=== PATIENT | female | born 1995 | race African-American/Black ===

== ENCOUNTER 2018-03-02 02:01 | Inpatient (IN) | payer SELFPAY ==
[~2018-03-02] VITALS: Ht 165.1 cm; Wt 43.2 kg
[2018-03-02 02:15] VITALS: BP 147/75; PULSE 96; RESP 16; TEMP 98.9; O2SAT 100
[2018-03-02] MEDS ORDERED: HALOPERIDOL LACTATE 5 MG/ML AMP IM ONE (04:15)
[2018-03-02 04:20] LABS: AUTOMATED NEUTROPHIL # 6.4 TH/MM3 (1.8-7.7); BASOPHIL # 0.1 TH/MM3 (0-0.2); BASOPHIL % 0.7 % (0.0-2.0); EOSINOPHIL % 0.2 % (0.0-4.0); HEMATOCRIT 38.2 % (35.0-46.0); HEMOGLOBIN 12.7 GM/DL (11.6-15.3); LYMPH % 21.9 % (9.0-44.0); LYMPHOCYTE # 2.1 TH/MM3 (1.0-4.8); MEAN CELL VOLUME 88.3 FL (80.0-100.0); MEAN CORPUSCULAR HEMOGLOBIN 29.5 PG (27.0-34.0); MEAN CORPUSCULAR HGB CONC 33.4 % (32.0-36.0); MEAN PLATELET VOLUME 9.2 FL (7.0-11.0); MONO % 11.6 % (0.0-8.0); MONOCYTE # 1.1 TH/MM3 (0-0.9); NEUT % 65.6 % (16.0-70.0); PLATELET COUNT 277 TH/MM3 (150-450); RED BLOOD COUNT 4.32 MIL/MM3 (4.00-5.30); RED CELL DISTRIBUTION WIDTH 14.1 % (11.6-17.2); WHITE BLOOD COUNT 9.7 TH/MM3 (4.0-11.0)
[2018-03-02 04:40] LABS: ALBUMIN 4.8 GM/DL (3.4-5.0); ALT (GPT) 18 U/L (10-53); AST (GOT) 15 U/L (15-37); BICARBONATE 24.5 MEQ/L (21.0-32.0); BLOOD UREA NITROGEN 15 MG/DL (7-18); CALCIUM 9.5 MG/DL (8.5-10.1); CHLORIDE 102 MEQ/L (98-107); CREATININE 0.81 MG/DL (0.50-1.00); GLOMERULAR FILTRATION RATE 108 ML/MIN (>89); GLUCOSE,RANDOM 86 MG/DL (74-106); SODIUM (NA) 136 MEQ/L (136-145)
[2018-03-02 04:42] LABS: ACETAMINOPHEN LESS THAN 2.0 MCG/ML (10.0-30.0)
[2018-03-02 04:50] LABS: ALKALINE PHOSPHATASE 66 U/L (45-117); TOTAL BILIRUBIN ADULT 0.9 MG/DL (0.2-1.0); TOTAL PROTEIN 8.9 GM/DL (6.4-8.2)
--- NOTE | 2018-03-02 06:09 | PD ---
HPI Chief Complaint: Psychiatric Symptoms Time Seen by Provider: 03:42 Travel History International Travel<30 days: No Contact w/Intl Traveler<30days: No Traveled to known affect area: No History of Present Illness HPI Patient is a 22-year-old presenting to the emergency department for psychiatric evaluation. Patient presents with her boss, patient reports that she hears voices, voices are getting louder. Patient stated that she hears people at her door and her window that are not there when she checks. She reports that the voices are in her head all the time and the only way she does not hear them as much as when she turns on music. Patient's boss states that she [place]. Patient denies any illicit drug use, she denies any psychiatric history. She is aware that she is hearing these voices that other people likely do not hear. She states that she is getting better as talking to people who are far away. Symptom onset is unknown, unknown if there any exacerbating factors. PFSH Past Medical History Medical History: Denies Significant Hx Tetanus Vaccination: Unknown Influenza Vaccination: No ?: Not LMP: 01/31/18 Past Surgical History Surgical History: No Previous Surgery Social History Alcohol Use: Yes (Occaisonally) Tobacco Use: No Substance Use: No Allergies-Medications (Allergen,Severity, Reaction): Coded Allergies: No Known Drug Allergies (Verified Allergy, Unknown, 03/02/18) Review of Systems Except as stated in HPI: all other systems reviewed are Neg Psychiatric: Positive: Disorder of Thought, Mood Disorder Physical Exam Narrative GENERAL: Thin, well-nourished, well-developed -[place] female. Presenting in no acute distress. SKIN: Warm and dry. HEAD: Atraumatic. Normocephalic. EYES: Pupils equal and round. No scleral icterus. No injection or drainage. ENT: No nasal bleeding or discharge. Mucous membranes pink and moist. NECK: Trachea midline. No JVD. CARDIOVASCULAR: Regular rate and rhythm. RESPIRATORY: No accessory muscle use. Clear to auscultation. Breath sounds equal bilaterally. GASTROINTESTINAL: Abdomen soft, non-tender, nondistended. Hepatic and splenic margins not palpable. MUSCULOSKELETAL: Extremities without clubbing, cyanosis, or edema. No obvious deformities. NEUROLOGICAL: Awake and alert. No obvious cranial nerve deficits. Motor grossly within normal limits. Five out of 5 muscle strength in the arms and legs. Normal speech. PSYCHIATRIC: Paranoid and delusional, patient appears to be responding to internal stimuli. Data Data Last Documented VS Vital Signs Date Time Temp Pulse Resp B/P (MAP) Pulse Ox O2 Delivery O2 Flow Rate FiO2 03/02/18 02:15 98.9 96 16 147/75 (99) 100 Orders Orders Complete Blood Count With Diff (03/02/18 03:43) Comprehensive Metabolic Panel (03/02/18 03:43) Thyroid Stimulating Hormone (03/02/18 03:43) Urinalysis - C+S If Indicated (03/02/18 03:43) Ed Urine Pregnancytest Poc (03/02/18 03:43) Psych Screen (03/02/18 03:43) Drug Screen, Random Urine (03/02/18 03:43) Alcohol (Ethanol) (03/02/18 03:43) Salicylates (Aspirin) (03/02/18 03:43) Tylenol (Acetaminophen) (03/02/18 03:43) Haloperidol Inj (Haldol Inj) (03/02/18 04:15) Labs Laboratory Tests Test 03/02/18 03:40 White Blood Count 9.7 TH/MM3 Red Blood Count 4.32 MIL/MM3 Hemoglobin 12.7 GM/DL Hematocrit 38.2 % Mean Corpuscular Volume 88.3 FL Mean Corpuscular Hemoglobin 29.5 PG Mean Corpuscular Hemoglobin Concent 33.4 % Red Cell Distribution Width 14.1 % Platelet Count 277 TH/MM3 Mean Platelet Volume 9.2 FL Neutrophils (%) (Auto) 65.6 % Lymphocytes (%) (Auto) 21.9 % Monocytes (%) (Auto) 11.6 % Eosinophils (%) (Auto) 0.2 % Basophils (%) (Auto) 0.7 % Neutrophils # (Auto) 6.4 TH/MM3 Lymphocytes # (Auto) 2.1 TH/MM3 Monocytes # (Auto) 1.1 TH/MM3 Eosinophils # (Auto) 0.0 TH/MM3 Basophils # (Auto) 0.1 TH/MM3 CBC Comment DIFF FINAL Differential Comment Blood Urea Nitrogen 15 MG/DL Creatinine 0.81 MG/DL Random Glucose 86 MG/DL Total Protein 8.9 GM/DL Albumin 4.8 GM/DL Calcium Level 9.5 MG/DL Alkaline Phosphatase 66 U/L Aspartate Amino Transf (AST/SGOT) 15 U/L Alanine Aminotransferase (ALT/SGPT) 18 U/L Total Bilirubin 0.9 MG/DL Sodium Level 136 MEQ/L Potassium Level 3.5 MEQ/L Chloride Level 102 MEQ/L Carbon Dioxide Level 24.5 MEQ/L Anion Gap 10 MEQ/L Estimat Glomerular Filtration Rate 108 ML/MIN Thyroid Stimulating Hormone 3rd Gen 3.760 uIU/ML Salicylates Level 2.8 MG/DL Acetaminophen Level LESS THAN 2.0 MCG/ML Ethyl Alcohol Level LESS THAN 3 MG/DL MDM Medical Decision Making Medical Screen Exam Complete: Yes Emergency Medical Condition: Yes Interpretation(s) Vital Signs Date Time Temp Pulse Resp B/P (MAP) Pulse Ox O2 Delivery O2 Flow Rate FiO2 03/02/18 02:15 98.9 96 16 147/75 (99) 100 Differential Diagnosis Mood disorder versus substance abuse versus psychosis versus schizophrenia versus metabolic abnormality versus other Narrative Course Patient is a well-appearing 22-year-old female presenting to the emergency department for psychiatric evaluation initially voluntarily. Patient appears paranoid, delusional, she does not seem capable of making sound decisions as evidenced by her being upon naked this evening. Patient was placed under Becker act for her own safety. Mental health screening discussed with the patient. Psychiatric screen ordered. Labs reviewed, no acute findings identified. Urine drug screen is pending. Patient is medically cleared for psychiatric evaluation. Diagnosis Primary Impression: Medical clearance for psychiatric admission Condition: Stable Megan Dean March 02, 2018 06:09
[2018-03-02 06:25] VITALS: BP 119/70; PULSE 90; RESP 15; TEMP 98.1; O2SAT 100
--- NOTE | 2018-03-02 07:05 | PD ---
Data Data Last Documented VS Vital Signs Date Time Temp Pulse Resp B/P (MAP) Pulse Ox O2 Delivery O2 Flow Rate FiO2 03/02/18 06:25 98.1 90 15 119/70 (86) 100 Room Air Orders Orders Complete Blood Count With Diff (03/02/18 03:43) Comprehensive Metabolic Panel (03/02/18 03:43) Thyroid Stimulating Hormone (03/02/18 03:43) Urinalysis - C+S If Indicated (03/02/18 03:43) Ed Urine Pregnancytest Poc (03/02/18 03:43) Psych Screen (03/02/18 03:43) Drug Screen, Random Urine (03/02/18 03:43) Alcohol (Ethanol) (03/02/18 03:43) Salicylates (Aspirin) (03/02/18 03:43) Tylenol (Acetaminophen) (03/02/18 03:43) Haloperidol Inj (Haldol Inj) (03/02/18 04:15) Diet Regular Basic (03/02/18 Breakfast) Labs Laboratory Tests Test 03/02/18 03:40 White Blood Count 9.7 TH/MM3 Red Blood Count 4.32 MIL/MM3 Hemoglobin 12.7 GM/DL Hematocrit 38.2 % Mean Corpuscular Volume 88.3 FL Mean Corpuscular Hemoglobin 29.5 PG Mean Corpuscular Hemoglobin Concent 33.4 % Red Cell Distribution Width 14.1 % Platelet Count 277 TH/MM3 Mean Platelet Volume 9.2 FL Neutrophils (%) (Auto) 65.6 % Lymphocytes (%) (Auto) 21.9 % Monocytes (%) (Auto) 11.6 % Eosinophils (%) (Auto) 0.2 % Basophils (%) (Auto) 0.7 % Neutrophils # (Auto) 6.4 TH/MM3 Lymphocytes # (Auto) 2.1 TH/MM3 Monocytes # (Auto) 1.1 TH/MM3 Eosinophils # (Auto) 0.0 TH/MM3 Basophils # (Auto) 0.1 TH/MM3 CBC Comment DIFF FINAL Differential Comment Blood Urea Nitrogen 15 MG/DL Creatinine 0.81 MG/DL Random Glucose 86 MG/DL Total Protein 8.9 GM/DL Albumin 4.8 GM/DL Calcium Level 9.5 MG/DL Alkaline Phosphatase 66 U/L Aspartate Amino Transf (AST/SGOT) 15 U/L Alanine Aminotransferase (ALT/SGPT) 18 U/L Total Bilirubin 0.9 MG/DL Sodium Level 136 MEQ/L Potassium Level 3.5 MEQ/L Chloride Level 102 MEQ/L Carbon Dioxide Level 24.5 MEQ/L Anion Gap 10 MEQ/L Estimat Glomerular Filtration Rate 108 ML/MIN Thyroid Stimulating Hormone 3rd Gen 3.760 uIU/ML Salicylates Level 2.8 MG/DL Acetaminophen Level LESS THAN 2.0 MCG/ML Ethyl Alcohol Level LESS THAN 3 MG/DL MDM Supervised Visit with RON: Yes Narrative Course The history, exam, and medical decision-making in the associated midlevel provider note were completed with my assistance. I reviewed and agree with the findings presented. I attest that I had a [id number] encounter with the patient on the same day, and personally performed and documented my assessment and findings in the medical record. *My assessment and Findings: This is a 22-year-old female who presents to the emergency department with paranoia, saying that she is hearing voices. She evidently was [place] with no clothes on. She appears psychotic on exam with some scientologist preoccupation. My concern is that she is demonstrating new onset schizophrenia. Labs are reassuring. Patient will be evaluated by psychiatry. Diagnosis Primary Impression: Medical clearance for psychiatric admission Scripts No Active Prescriptions or Reported Meds Condition: Stable Meliza Jaime MD March 02, 2018 07:05
[2018-03-02 07:56] VITALS: BP 90/51; PULSE 70; RESP 18; TEMP 98.9; O2SAT 100
[2018-03-02 08:40] LABS: BILIRUBIN, URINE NEG (NEG); BLOOD, URINE NEG (NEG); GLUCOSE,URINE NEG (NEG); KETONE, URINE 40 mg/dL (NEG); NITRITE,URINE NEG (NEG); PH, URINE 6.5 (5.0-8.5); URINE COLOR LIGHT-YELLOW (YELLW/STRAW); URINE LEUKOCYTE ESTERASE MOD (NEG)
[2018-03-02] MEDS ORDERED: ACETAMINOPHEN 325 MG TAB PO PRN (08:45)
[2018-03-02] MEDS ORDERED: ALUMINUM/MAGNESIUM/SIMETH 30 ML CUP PO PRN (08:45)
[2018-03-02] MEDS ORDERED: diphenhydrAMINE HCL 50 MG CAP PO PRN (08:45)
[2018-03-02] MEDS ORDERED: NICOTINE 21 MG/24 HR PATCH T-DERMAL PRN (08:45)
[2018-03-02] MEDS ORDERED: MAGNESIUM HYDROXIDE SUSP 30 ML CUP PO PRN (08:45)
[2018-03-02 08:46] LABS: BACTERIA, URINE MOD /hpf; MUCUS URINE MOD /lpf (OCC)
--- NOTE | 2018-03-02 09:13 | HHI.HP ---
Provisional Diagnosis Admission Date March 02, 2018 at 08:38 [place] I. 1. Brief psychotic disorder Rule out primary psychotic disorder Rule out mood disorder with psychotic features Rule-out substance induced psychotic disorder Rule out psychosis due to [facility] [place] II. Deferred Certification of Person's Competence To Provide Express and Informed Consent I have personally examined Elsa Hameed , a person being served at [facility] on, March 02, 2018 09:13. Express and informed consent means consent voluntarily given in writing, by a competent person, after sufficient explanation and disclosure of the subject matter involved to enable the person to make a knowing and willful decision without any element of force, fraud, deceit, duress, or other form of constraint or coercion. This person is 18 years of age or older, is not now known to be incompetent to consent to treatment with a guardian advocate, and does not have a health care surrogate or proxy currently making medical treatment decisions. I have found this person to be one of the following: [] Competent to provide express and informed consent, as defined above, for voluntary admission to this facility and is competent to provide express and informed consent for treatment. He/she has the consistent capacity to make well reasoned, willful, and knowing decisions concerning his or her medical or mental health treatment. The person fully and consistently understands the purpose of the admission for examination/placement and is fully capable of personally exercising all rights [place] [x] Incompetent to provide express and informed consent to voluntary admission, and this is incompetent to provide express and informed consent to treatment. The person must be transferred to involuntary status and a petition for a guardian advocate filed with the Circuit Court. [] Refusing to provide express and informed consent to voluntary admission but is competent to provide express and informed consent for treatment. The person must be discharged or transferred to involuntary status. Form shall be completed within 24 hours of a person's arrival at the receiving facility and filed in the clinical record of each person: 1. Admitted on a voluntary basis 2. Permitted to provide express and informed consent to his/her own treatment 3. Allowed to transfer from involuntary to voluntary status 4. Prior to permitting a person to consent to his or her own treatment after having been previously found incompetent to consent to treatment. History of Present Illness Capacity: Lacks Capacity Psych Chief Complaint: Psychosis HPI Ms. Hameed is a 22 year-old female with no known past psychiatric history who presented with her employer out of concern for psychotic symptoms. ED provider note reviewed. Reviewing the electronic medical record, it appears this is patient's first visit to [place]. Patient seen and examined. Chart reviewed. Case discussed with staff in the ED. On my examination today, the patient presents as quite disorganized with silly, inappropriate affect. She appears frankly internally stimulated and endorses auditory hallucinations, although she cannot describe these to me in any detail given her thought disorganization. She is able to deny command auditory hallucinations, albeit somewhat unreliably so. She denies any suicidal or homicidal ideation but seems unreliable to contract for safety. Paranoia is present. Feelings of thought manipulation or present. She does periodically change from having a silly affect to appearing quite fearful for unclear reasons. She is paranoid about providing contact information for collateral. Psychiatric interview is quite limited because of the patient's psychotic symptomatology. She verbalizes no acute physical complaints. Past psychiatric history: Patient is likely an unreliable historian. She denies a history of psychiatric diagnosis. She denies a history of inpatient or outpatient psychiatric treatment. She denies a history of suicide attempts. Family history: The patient denies a family history of serious mental illness or suicide. Chemical dependency history: When I ask about substance use, the patient says " I am loving soup plan." Urine toxicology is positive for cannabinoids. Social history: Patient is unable to provide due to psychiatric symptomatology. Given the patient's degree of psychiatric impairment I have obtained collateral information from her mother Anahi Matthews at [phone]/alternate . Ms. [place] out of state. She reports that the patient has no history of mental illness, nor is there any family history of mental illness problems. She does report that the patient has been struggling in a relationship recently, and mother is concerned that patient's partner may have been slipping her drugs. Mother is willing to serve as health care surrogate, and I have discussed the treatment plan with mother. Ms. Matthews wishes to hold off on any psychotropic medications at this time to see if the patient will clear on her own, although I have advocated for initiation of appropriate antipsychotic medications if patient's psychosis persists. Review of Systems ROS Limitations: Psychotic, Poor Historian Except as stated in HPI: all other systems reviewed are Neg Past Family Social History Coded Allergies: No Known Drug Allergies (Verified Allergy, Unknown, 03/02/18) Past Medical History No known past medical history No Active Prescriptions or Reported Meds Current Medications Medications (Trade) Dose Ordered Sig/[place]onte Route Start Time Stop Time Status Last Admin (Benadryl) 50 mg HS PRN PO 03/02/18 08:45 (Tylenol) 650 mg Q4H PRN PO 03/02/18 08:45 (Milk Of Magnesia Liq) 30 ml DAILY PRN PO 03/02/18 08:45 (Mag-Al Plus Susp Liq) 30 ml Q6H PRN PO 03/02/18 08:45 (Habitrol 21 Mg Patch.24 Hr) 1 patch DAILY PRN T-DERMAL 03/02/18 08:45 UNV (Macrobid) 100 mg BIDPC PO 03/02/18 18:00 UNV Patient's Strengths (min. 2) In a monitored setting. Verbally fluent. Physical Exam Physical exam completed by ED provider. On my examination today, the patient appears to be in no acute physical distress. No motor abnormalities noted. No signs of withdrawal noted. Labs and vitals reviewed: Vital Signs Vital Signs Date Time Temp Pulse Resp B/P (MAP) Pulse Ox O2 Delivery O2 Flow Rate FiO2 03/02/18 07:56 98.9 70 18 90/51 (64) 100 Room Air Lab Results Test 03/02/18 03:40 03/02/18 08:10 White Blood Count 9.7 TH/MM3 Red Blood Count 4.32 MIL/MM3 Hemoglobin 12.7 GM/DL Hematocrit 38.2 % Mean Corpuscular Volume 88.3 FL Mean Corpuscular Hemoglobin 29.5 PG Mean Corpuscular Hemoglobin Concent 33.4 % Red Cell Distribution Width 14.1 % Platelet Count 277 TH/MM3 Mean Platelet Volume 9.2 FL Neutrophils (%) (Auto) 65.6 % Lymphocytes (%) (Auto) 21.9 % Monocytes (%) (Auto) 11.6 % Eosinophils (%) (Auto) 0.2 % Basophils (%) (Auto) 0.7 % Neutrophils # (Auto) 6.4 TH/MM3 Lymphocytes # (Auto) 2.1 TH/MM3 Monocytes # (Auto) 1.1 TH/MM3 Eosinophils # (Auto) 0.0 TH/MM3 Basophils # (Auto) 0.1 TH/MM3 CBC Comment DIFF FINAL Differential Comment Blood Urea Nitrogen 15 MG/DL Creatinine 0.81 MG/DL Random Glucose 86 MG/DL Total Protein 8.9 GM/DL Albumin 4.8 GM/DL Calcium Level 9.5 MG/DL Alkaline Phosphatase 66 U/L Aspartate Amino Transf (AST/SGOT) 15 U/L Alanine Aminotransferase (ALT/SGPT) 18 U/L Total Bilirubin 0.9 MG/DL Sodium Level 136 MEQ/L Potassium Level 3.5 MEQ/L Chloride Level 102 MEQ/L Carbon Dioxide Level 24.5 MEQ/L Anion Gap 10 MEQ/L Estimat Glomerular Filtration Rate 108 ML/MIN Thyroid Stimulating Hormone 3rd Gen 3.760 uIU/ML Salicylates Level 2.8 MG/DL Acetaminophen Level LESS THAN 2.0 MCG/ML Ethyl Alcohol Level LESS THAN 3 MG/DL Urine Color LIGHT-YELLOW Urine Turbidity HAZY Urine pH 6.5 Urine Specific Velva 1.012 Urine Protein TRACE mg/dL Urine Glucose (UA) NEG mg/dL Urine Ketones 40 mg/dL Urine Occult Blood NEG Urine Nitrite NEG Urine Bilirubin NEG Urine Urobilinogen LESS THAN 2.0 MG/DL Urine Leukocyte Esterase MOD Urine WBC 9-14 /hpf Urine Squamous Epithelial Cells 6-8 /hpf Urine Bacteria MOD /hpf Urine Mucus MOD /lpf Microscopic Urinalysis Comment CULTURE INDICATED Urine Opiates Screen NEG Urine Barbiturates Screen NEG Urine Amphetamines Screen NEG Urine Benzodiazepines Screen NEG Urine Cocaine Screen NEG Urine Cannabinoids Screen POS Date/Time Source Procedure Growth Status 03/02/18 08:10 Urine Clean Catch Urine Culture Pending Received Mental Status Examination Appearance: Disheveled Consciousness: Alert Orientation: Person Motor Activity: Normal gait Speech: Unremarkable Language: Other (Rambling) Fund of Knowledge: Inadequate Attention and Concentration: Easily Distracted Memory: Impaired (Psychosis interferes) Mood: Anxious Affect: Other (Silly, inappropriate) Thought Process & Associations: Disorganized Thought Content: Delusional Hallucination Type: Other (Appears frankly internally stimulated) Delusion Type: Paranoid, Other (Thought manipulation) Suicidal Ideation: No Suicidal Plan: No Suicidal Intention: No Homicidal Ideation: No Homicidal Plan: No Homicidal Intention: No Insight: Poor Judgment: Poor Assessment & Plan Problem List: (1) Brief psychotic disorder ICD Codes: F23 - Brief psychotic disorder Assessment & Plan 22-year-old female with no known past psychiatric history who presents for psychiatric evaluation, placed under Becker act by ED provider. On my examination today, the patient appears to be floridly psychotic. Differential diagnosis for the psychosis is as detailed above. Patient's urine toxicology is positive for cannabinoids, perhaps suggesting a substance-induced component. Patient exhibits clear self-care deficit in her present state and requires psychiatric hospitalization for safety, observation and stabilization. Admit inpatient. Involuntary status. I have completed first opinion. Consult for second opinion. Request healthcare surrogate and guardian advocate. Per healthcare surrogate preference, hold off on psychotropic medications at this time. Continue Macrobid as ordered for UTI by ED provider and follow up urine cultures. First break psychosis workup including head imaging and laboratories. Check EKG for QTC in case antipsychotic as required. Vitals every shift. Counselor to see. Discharge Planning Pending psychiatric stabilization Request HC Surrog/Guard Advoc?: Yes Adolph Tirado MD March 02, 2018 09:13
--- NOTE | 2018-03-02 09:33 | RADRPT ---
EXAM DATE/TIME: 03/02/2018 09:15 [place] COMPARISON: No previous studies available for comparison. INDICATIONS : Altered mental status, hearing voices. RADIATION DOSE: 35.14 CTDIvol (mGy) MEDICAL HISTORY : None SURGICAL HISTORY : None. ENCOUNTER: Initial ACUITY: 1 day PAIN SCALE: 0/10 LOCATION: cranial TECHNIQUE: Multiple contiguous axial images were obtained of the head. Using automated exposure control and adj ustment of the mA and/or kV according to patient size, radiation dose was kept as low as reasonably a chievable to obtain optimal diagnostic quality images. DICOM format image data is available electro nically for review and comparison. FINDINGS: The head is mildly canted in the gantry creating some asymmetries. CEREBRUM: The ventricles are normal for age. No evidence of midline shift, mass lesion, hemorrhage or acute in farction. No extra-axial fluid collections are seen. POSTERIOR FOSSA: The cerebellum and brainstem are intact. The 4th ventricle is midline. The cerebellopontine angle i s unremarkable. EXTRACRANIAL: The visualized portion of the orbits is intact. SKULL: The calvaria is intact. No evidence of skull fracture. CONCLUSION: Negative noncontrast CT brain. Scott Romero MD on March 02, 2018 at 9:30 Board Certified Radiologist. This report was verified electronically.
[2018-03-02 10:01] VITALS: BP 94/52
[2018-03-02 11:26] VITALS: BP 109/59; PULSE 80; RESP 18; TEMP 98.3; O2SAT 98
[2018-03-02 16:42] LABS: FREE T4 1.35 NG/DL (0.76-1.46)
[2018-03-02 16:46] LABS: FOLATE GREATER THAN 20.0 NG/ML (3.1-17.5)
[2018-03-02] MEDS: NITROFURANTOIN MONOHYD MACROCR 100 MG CAP PO SCH (17:51)
[2018-03-03 05:53] VITALS: BP 127/57; PULSE 94; RESP 16; TEMP 98; O2SAT 99
[2018-03-03] MEDS: NITROFURANTOIN MONOHYD MACROCR 100 MG CAP PO SCH ×2 (09:40→18:14)
[2018-03-03 09:52] LABS: CHOLESTEROL 101 MG/DL (120-200); TRIGLYCERIDES 48 MG/DL (42-150)
[2018-03-03 09:53] LABS: CHOLESTEROL/ HDL RATIO 1.81 RATIO; HDL CHOLESTEROL 55.7 MG/DL (40.0-60.0); LDL CHOLESTEROL 36 MG/DL (0-99)
--- NOTE | 2018-03-03 11:01 | PD.PSY.CON ---
Provisional Diagnosis Admission Date March 02, 2018 at 08:38 [place] I. 1. Brief psychotic disorder Rule out primary psychotic disorder Rule out mood disorder with psychotic features Rule-out substance induced psychotic disorder Rule out psychosis due to [facility] [place] II. Deferred History of Present Illness Service Psychiatry Consult Requested By Psychiatry Reason for Consult 2nd Opinion Primary Care Physician No Primary Care Physician HPI Pt seen and discussed with staff. Chart reviewed. Pt is a 22 YOWF who was admitted to [facility] [place] under a BA secondary to psychosis. Pt was brought to ER by her employer due to AVH. She was agitated in ED yesterday and given Haldol IM X1. Staff report that last night pt was asking to go out and speak with "those people" and there were no people around. Pt reports that she had not slept for 5 days prior to admission and "medicine yesterday put me to sleep" so she is happy. She states that she was experiencing "projections" that were related to [employer] that were communicating special ideas to her. She states that she is still having projections but is "getting control over them." Affect is labile and thought process is tangential. No SI/HI Past psychiatric history: . She denies a history of previous psychiatric diagnosis. She denies a history of inpatient or outpatient psychiatric treatment. She denies a history of suicide attempts. Family history: The patient denies a family history of serious mental illness or suicide. Chemical dependency history: She states that she stopped using Cannabis one week ago because she "didn't want to be disrespectful to her boss" Urine toxicology is positive for cannabinoids. Social history: Patient is unable to provide due to psychiatric symptomatology. Past Family Social History Coded Allergies: No Known Drug Allergies (Verified Allergy, Unknown, 03/02/18) No Active Prescriptions or Reported Meds Current Medications Medications (Trade) Dose Ordered Sig/[place] Route Start Time Stop Time Status Last Admin (Benadryl) 50 mg HS PRN PO 03/02/18 08:45 Future Hold (Tylenol) 650 mg Q4H PRN PO 03/02/18 08:45 (Milk Of Magnesia Liq) 30 ml DAILY PRN PO 03/02/18 08:45 (Mag-Al Plus Susp Liq) 30 ml Q6H PRN PO 03/02/18 08:45 (Habitrol 21 Mg Patch.24 Hr) 1 patch DAILY PRN T-DERMAL 03/02/18 08:45 (Macrobid) 100 mg BIDPC PO 03/02/18 18:00 03/03/18 09:40 Patient's Strengths (min. 2) In a monitored setting. Verbally fluent. Physical Exam Vital Signs Vital Signs Date Time Temp Pulse Resp B/P (MAP) Pulse Ox O2 Delivery O2 Flow Rate FiO2 03/03/18 05:53 98.0 94 16 127/57 (80) 99 03/02/18 07:56 Room Air Lab Results Test 03/02/18 15:37 03/03/18 08:56 Erythrocyte Sedimentation Rate 6 mm/hr Vitamin B12 Level 1508 PG/ML Folate GREATER THAN 20.0 NG/ML Free Thyroxine 1.35 NG/DL HIV (1&2) Ab and P24 Ag, 4th Gener NONREACTIVE Triglycerides Level 48 MG/DL Cholesterol Level 101 MG/DL LDL Cholesterol 36 MG/DL HDL Cholesterol 55.7 MG/DL Cholesterol/HDL Ratio 1.81 RATIO Date/Time Source Procedure Growth Status 03/02/18 08:10 Urine Clean Catch Urine Culture Pending Received Mental Status Examination Appearance: Disheveled Consciousness: Alert Orientation: Person Motor Activity: Normal gait Speech: Unremarkable Language: Other (Rambling) Fund of Knowledge: Inadequate Attention and Concentration: Easily Distracted Memory: Impaired (Psychosis interferes) Mood: Anxious, Manic Affect: Labile, Other (Silly, inappropriate) Thought Process & Associations: Tangential Thought Content: Delusional Hallucination Type: Auditory Delusion Type: Bizarre, Paranoid, Other (Thought manipulation) Suicidal Ideation: No Suicidal Plan: No Suicidal Intention: No Homicidal Ideation: No Homicidal Plan: No Homicidal Intention: No Insight: Poor Judgment: Poor Assessment & Plan Problem List: (1) Brief psychotic disorder ICD Codes: F23 - Brief psychotic disorder Assessment & Plan I agree that pt meets criteria for involuntary hospitalization due to psychosis and self neglect. 2nd opinion paperwork completed Estimated LOS: days Request HC Surrog/Guard Advoc?: Yes Jessica Yap MD March 03, 2018 11:01
[2018-03-03 17:43] VITALS: BP 104/61; PULSE 103; RESP 16; TEMP 98.7; O2SAT 99
--- NOTE | 2018-03-03 21:39 | EKG ---
Date Performed: 03/02/2018 Time Performed: 09:38:55 PTAGE: 22 years EKG: Sinus rhythm NORMAL ECG INTERPRETATION BASED ON A DEFAULT AGE OF 41 YEARS NO PREVIOUS TRACING DOCTOR: Carlton Perkins Interpretating Date/Time 03/03/2018 21:38:55
[2018-03-04 06:40] VITALS: BP 108/72; PULSE 88; RESP 19; TEMP 97.6; O2SAT 97
[2018-03-04] MEDS: NITROFURANTOIN MONOHYD MACROCR 100 MG CAP PO SCH (09:37)
[2018-03-04] MEDS ORDERED: NITR100C4 PO (13:05)
--- NOTE | 2018-03-04 13:05 | HHI.DS ---
Psychiatry Discharge Summary Inpatient Psychiatric care?: Yes Advance Directive: No Mental Health AdvanceDirective: No Health Care Proxy: No Admission Admission Date March 02, 2018 at 08:38 Admission Diagnosis: (1) Brief psychotic disorder ICD Code: F23 - Brief psychotic disorder Brief History Ms. Hameed is a 22 year-old female with no known past psychiatric history who presented with her employer out of concern for psychotic symptoms. ED provider note reviewed. Reviewing the electronic medical record, it appears this is patient's first visit to [facility]. Patient seen and examined. Chart reviewed. Case discussed with staff in the ED. On my examination today, the patient presents as quite disorganized with silly, inappropriate affect. She appears frankly internally stimulated and endorses auditory hallucinations, although she cannot describe these to me in any detail given her thought disorganization. She is able to deny command auditory hallucinations, albeit somewhat unreliably so. She denies any suicidal or homicidal ideation but seems unreliable to contract for safety. Paranoia is present. Feelings of thought manipulation or present. She does periodically change from having a silly affect to appearing quite fearful for unclear reasons. She is paranoid about providing contact information for collateral. Psychiatric interview is quite limited because of the patient's psychotic symptomatology. She verbalizes no acute physical complaints. Tobacco Use In Past 30 Days: No Tobacco Past 30 Days Alcohol Use: Never Hospital Course Patient was admitted to a locked, inpatient psychiatric unit. Appropriate precautions were in place throughout patient's hospital stay. Patient was seen and examined on the unit by psychiatry and also visited by counselor. Patient and patient's health care surrogate both declined any psychotropic medications for the patient. A first break psychosis workup was undertaken and has been unrevealing so far for a medical/neurologic causes for patient's symptoms. There was no evidence of any suicidality or homicidality on the inpatient unit. Self-care deficit, present at admission, improved as patient's condition stabilized. Collateral information was obtained from the patient's mother and father. On the day of discharge: Patient seen and examined with nurse. Chart reviewed. Case discussed with nursing staff. Patient is noted to be "much better" and "more reality based." On my examination today, the patient is much more lucid versus my previous contact with her. She would like to be discharged soon. She denies any suicidal or homicidal ideation, intent or plan on direct questioning and contracts for safety. I can elicit no depressive or hypomanic/manic symptoms. She denies any audiovisual hallucinations. She exhibits some mild ongoing paranoia, although she seems to be doubting the veracity of her concerns in this regard. She does remain a little oddly related. She declines psychotropic medications. She has no physical complaints. I have an extensive discussion with patient regarding differential diagnosis for presenting symptoms. I have discussed prognosis for these diagnoses, especially if left untreated. I have spoken with patient's mother ( [facility]) and father (at [facility]) on day of discharge. Both would like to have the patient discharged. I have reviewed differential diagnosis with parents as well. Plan is reportedly to try to have patient fly back with mother to [place] in a few days. I have expressed my concerns about this plan and recommended instead ground transport, ideally in private car with both parents monitoring patient, if patient must be transported back to [place]. I have recommended to both parents that patient's home environment be secured of all potential means of harm to self or others including but not limited to guns, knives and medications. I have counseled them both to have the patient brought back to the nearest emergency room at the first sign of any psychiatric decompensation. Given that parents are willing to assume care of the case and given patient's symptomatic improvement, I correctional program officer that the patient no longer meets involuntary inpatient criteria. There is no evidence of imminent risk of harm to self or others at this point, nor is there is significant self-care deficit to support involuntary hospitalization. Patient and family are requesting discharge, and I have no basis to retain patient over her objection. Patient will be discharged today into father's care. Psychiatric follow-up as arranged by counselor. Patient is also to follow up with primary care. I have counseled the patient to abstain from substances of abuse. I have counseled the patient regarding warning signs for need to return to the psychiatric emergency room as part of a general safety plan. Results Blood Pressure 108 / 72 Vital Signs Date Time Temp Pulse Resp B/P (MAP) Pulse Ox O2 Delivery O2 Flow Rate FiO2 03/04/18 06:40 97.6 88 19 108/72 (84) 97 03/02/18 07:56 Room Air Laboratory Tests Test 03/02/18 03:40 03/02/18 08:10 03/02/18 09:40 03/02/18 15:37 Monocytes (%) (Auto) 11.6 % (0.0-8.0) Monocytes # (Auto) 1.1 TH/MM3 (0-0.9) Total Protein 8.9 GM/DL (6.4-8.2) Thyroid Stimulating Hormone 3rd Gen 3.760 uIU/ML (0.358-3.740) Acetaminophen Level LESS THAN 2.0 MCG/ML Urine Turbidity HAZY (CLEAR) Urine Ketones 40 mg/dL (NEG) Urine Leukocyte Esterase MOD (NEG) Urine WBC 9-14 /hpf (0-5) Urine Squamous Epithelial Cells 6-8 /hpf (0-5) Urine Bacteria MOD /hpf (NONE) Urine Mucus MOD /lpf (OCC) Urine Cannabinoids Screen POS (NEG) Ammonia 33 MCMOL/L (11-32) Vitamin B12 Level 1508 PG/ML (193-986) Folate GREATER THAN 20.0 NG/ML Test 03/03/18 08:56 Cholesterol Level 101 MG/DL (120-200) Laboratory Results Test 03/03/18 08:56 Cholesterol Level 101 MG/DL (120-200) HDL Cholesterol 55.7 MG/DL (40.0-60.0) Hemoglobin A1c 5.0 % (4.3-6.0) LDL Cholesterol 36 MG/DL (0-99) Triglycerides Level 48 MG/DL (42-150) Summary of Procedures None done Imaging Last Impressions Head CT 03/02/18 0000 Signed Impressions: Service Date/Time: Friday, March 02, 2018 09:15 - CONCLUSION: Negative noncontrast CT brain. Scott Romero MD Pending results at discharge: Yes (Extended tox, LEILA) Medications # of Antipsychotic meds at D/C: 0 Approp Antipsych med options 1 - Minimum of three failed multiple trials of monotherapy. 2 - Documented plan to taper to monotherapy due to previous use of multiple meds OR cross-taper in progress at D/C. 3 - Documentation of augmentation of Clozapine. 4 - Justification other than those listed in allowable values 1-3, document here : Discharge Discharge Date: March 04, 2018 Discharge Diagnosis: (1) Brief psychotic disorder Diagnosis: Principal (Improved versus admission) ICD Code: F23 - Brief psychotic disorder Pt Condition on Discharge: Stable Discharge Disposition: Discharge Home Discharge Instructions Diet Instructions: As Tolerated, No Restrictions Activities you can perform: Weight Bearing as Ryan Scheduled Appointment: As per counselor's notes New Orders: AMMONIA - 1 Week New Medications: Nitrofurantoin Monohydrate Macrocrystals (Nitrofurantoin Monohydrate Macrocrystals) 100 Mg Cap 100 MG PO BIDPC for Antibiotic for 3 Days, CAP 0 Refills Discharge Time > 30 minutes Mental Status Examination Appearance: Appropriate Consciousness: Alert Orientation: Person, Place, Date/Time (Approximate), Situation Motor Activity: Normal gait, Other (No motor abnormalities noted) Speech: Unremarkable Language: Adequate Fund of Knowledge: Adequate Attention and Concentration: Other (Fair) Memory: Unremarkable Mood: Appropriate Affect: Other (Somewhat oddly related but otherwise appropriate) Thought Process & Associations: Circumstantial Thought Content: Other (Generally appropriate) Hallucination Type: None Delusion Type: Paranoid (Mild) Suicidal Ideation: No Suicidal Plan: No Suicidal Intention: No Homicidal Ideation: No Homicidal Plan: No Homicidal Intention: No Mental Status Exam Remarks Insight and judgment are fair to poor Discharge/Advance Care Plan Health Problems: (1) Brief psychotic disorder Goals to promote your health * To prevent worsening of your condition and complications * To maintain your health at the optimal level Directions to meet your goals Take your medications as prescribed Follow your dietary instruction Follow activity as directed Keep your appointments as scheduled Take your immunizations and boosters as scheduled If your symptoms worsen call your PCP, if no PCP go to Urgent Care Center or Emergency Room For 07/05 questions related to your inpatient stay or results of tests pending at discharge, please contact Dr. Adolph Tirado at Smoking is Dangerous to Your Health. Avoid second hand smoking Adolph Tirado MD March 04, 2018 13:05
== END 2018-03-04 15:18 | disposition home or self-care (01) | DRG 885 ==
LOC: NEPD 02:01 → NEDA 08:38 → H270 09:50
PROVIDERS: ADMIT Psychiatry & Neurology Psychiatry; ATTEND Psychiatry & Neurology Psychiatry
DX: F23 Brief psychotic disorder (principal)
CPT/HCPCS: 70450; 80053; 80061; 80307; 81001; 82140; 82607; 82746; 83036; 84439; 84443; 84703; 85025; 85652; 86038; 86592; 86703; 87086; 93005; 96372; G0481; J1630